=== PATIENT | male | born 1960 ===

== ENCOUNTER 2018-04-28 23:35 | Emergency (ER) | payer MEDICAID ==
[2018-04-28 23:51] VITALS: O2SAT 99
--- NOTE | 2018-04-29 00:07 | C.PDOC ---
History Of Present Illness Patient states that today he felt that he could not urinate as well as previously and that he had to strain. It got progressively better. No f/c/n/v. able to void. Time Seen by Provider: 04/29/18 00:06 Chief Complaint (Nursing): Male Genitourinary History Per: Patient History/Exam Limitations: no limitations Onset/Duration Of Symptoms: Hrs Current Symptoms Are (Timing): Still Present Severity: Mild Pain Scale Rating Of: 3 Quality Of Discomfort: Cramping, Pressure Associated Symptoms: Urinary Symptoms. denies: Fever, Chills, Nausea, Vomiting Alleviating Factors: None Recent travel outside of the [place]: No Additional History Per: Family Past Medical History Reviewed: Historical Data, Nursing Documentation, Vital Signs Vital Signs: Last Vital Signs Temp 98.1 F 04/28/18 23:48 Pulse 93 H 04/28/18 23:48 Resp 18 04/28/18 23:48 BP 154/94 H 04/28/18 23:48 Pulse Ox 99 04/28/18 23:48 - Medical History PMH: HTN Family History: States: No Known Family Hx - Social History Hx Alcohol Use: No Hx Substance Use: No - Immunization History Hx Tetanus Toxoid Vaccination: No Hx Influenza Vaccination: No Hx Pneumococcal Vaccination: No Review Of Systems Constitutional: Negative for: Fever, Chills Gastrointestinal: Negative for: Abdominal Pain Genitourinary: Positive for: Dysuria, Frequency. Negative for: Penile Discharge, Scrotal Pain Skin: Negative for: Rash Neurological: Negative for: Weakness Psych: Negative for: Anxiety Physical Exam - Physical Exam Appears: Non-toxic, No Acute Distress Gastrointestinal/Abdominal: Soft, No Tenderness, No Distention Back: No CVA Tenderness Male Genital: Normal Inspection Neurological/Psych: Oriented x3 Gait: Steady ED Course And Treatment O2 Sat by Pulse Oximetry: 99 Pulse Ox Interpretation: Normal Progress Note: using bladder scan - pt had about 100-110 cc of urine. Continuing to be able to void Disposition Counseled Patient/Family Regarding: Studies Performed, Diagnosis - Disposition Referrals: Christine Coffman MD [Staff Provider] - Disposition: HOME/ ROUTINE Disposition Time: 00:06 Condition: FAIR Instructions: Dysuria, Adult (DC) Forms: [employer] (Danish) Print Language: DANISH - Clinical Impression Clinical Impression: Enlarged prostate with lower urinary tract symptoms (LUTS)
[2018-04-29 00:29] LABS: SQUAMOUS EPITHIAL < 1 /hpf (0-5); URINE BACTERIA RARE (<OCC); URINE BILIRUBIN NEGATIVE (NEGATIVE); URINE BLOOD 2+ (NEGATIVE); URINE CALCIUM OXALATE CRYSTALS RARE /hpf (<OCC); URINE CLARITY Clear (Clear); URINE COLOR Yellow (YELLOW); URINE GLUCOSE (UA) NORMAL (Normal); URINE LEUKOCYTE ESTERASE NEG Leu/uL (Negative); URINE PROTEIN NEGATIVE (NEGATIVE)
[2018-04-29 02:01] VITALS: BP 110/72; PULSE 82; RESP 14; TEMP 98.9
== END 2018-04-29 02:01 | disposition home or self-care (01) ==
LOC: SUPCPDRO 23:35 → C.ER 23:35
DX: N40.1 Benign prostatic hyperplasia with lower urinary tract symptoms (principal)